=== PATIENT | female | born 1960 | race Caucasian/White ===

== ENCOUNTER 2017-06-29 14:06 | Emergency (ER) | payer OTHER ==
[2017-06-29 17:22] VITALS: BP 141/56
== END 2017-06-29 17:22 | disposition home or self-care (01) ==
LOC: ED 14:06
DX: S42.252A Displaced fracture of greater tuberosity of left humerus, initial encounter for closed fracture (principal); W01.0XXA Fall on same level from slipping, tripping and stumbling without subsequent striking against object, initial encounter; Y93.89 Activity, other specified; Y99.8 Other external cause status; Y92.89 Other specified places as the place of occurrence of the external cause
CPT/HCPCS: J1170; J1200